=== PATIENT | female | born 1990 | race Caucasian/White ===

== ENCOUNTER 2016-12-29 14:11 | Observation (INO) | payer BC, MEDICAID ==
[~2016-12-29] VITALS: Ht 170.2 cm; Wt 48.5 kg
[2016-12-29] MEDS ORDERED: methylPREDNISolone SOD SUCC 125 MG/2 ML VL ONE (14:17)
[2016-12-29] MEDS ORDERED: SODIUM CHLORIDE 0.9% 1,000 ML IVB ONE (14:41)
[2016-12-29] MEDS ORDERED: methylPREDNISolone SOD SUCC 125 MG/2 ML VL IV ONE (14:45)
[2016-12-29] MEDS ORDERED: diphenhdrAMINE HCL 50 MG/1 ML VL IV ONE (14:45)
[2016-12-29 14:53] LABS: Hematocrit 44.8 % (36.0-46.0); Hemoglobin 15.2 g/dL (12.2-16.2); Mean Corpuscular Hemoglobin 32.2 pg (28.0-32.0); Mean Corpuscular Volume 94.7 fL (80.0-100.0); Mean Platelet Volume 8.8 fL (7.4-10.4); Platelet Count (auto) 260 10^3/uL (140-450); Red Cell Distribution Width 13.1 % (11.6-16.0); White Blood Cell 4.3 10^3/uL (4.4-10.8)
[2016-12-29 15:03] LABS: Albumin 4.6 g/dL (3.4-5.0); Bilirubin, Total 0.5 mg/dL (0.2-1.0); Calcium 9.3 mg/dL (8.5-10.1); Potassium 3.4 mmol/L (3.5-5.1); Total Protein 8.3 g/dL (6.4-8.2)
[2016-12-29 15:06] LABS: Metamyelocytes % 0; Myelocytes % 0; Promyelocytes % 0; Reactive Lymphocytes 0
[2016-12-29 15:08] LABS: INR 1.04 (0.9-1.15); Partial Thromboplastin Time 24.7 sec (22.64-33.71); Prothrombin Time 11.2 sec (9.37-12.3)
[2016-12-29 15:47] LABS: Urine Bilirubin Negative (Negative); Urine Blood Negative /uL (Negative); Urine Color Yellow (Yellow); Urine Glucose Normal (Normal); Urine Mucus FEW (None Seen); Urine Nitrite Negative (Negative); Urine RBC <1 /hpf (0 - 4); Urine Squamous Epithelial Cell FEW /hpf (<5); Urine Urobilinogen Normal (Negative); Urine pH 6.5 (5.0-8.0)
[2016-12-29 15:52] LABS: Urine Ketone 2+ (Negative)
[2016-12-29 17:19] LABS: Platelet Estimate Adequate; RBC Morphology Normal
[2016-12-29] MEDS ORDERED: LIDOCAINE VISCOUS 2% 15ML UD MT ONE (18:30)
[2016-12-29] MEDS ORDERED: FAMOTIDINE (10MG/ML) 2ML VL IV ONE (18:30)
[2016-12-29] MEDS ORDERED: FAMOTIDINE 20 MG TAB PO ONE (19:00)
[2016-12-29 19:35] VITALS: BP 150/78
== END 2016-12-29 20:00 | disposition home or self-care (01) | DRG 923 ==
LOC: ER 14:17 → OVERFLOW 14:46 → ER 20:00
PROVIDERS: ADMIT Family Medicine; ATTEND Family Medicine
DX: T78.1XXA Other adverse food reactions, not elsewhere classified, initial encounter (principal); D89.9 Disorder involving the immune mechanism, unspecified; K12.0 Recurrent oral aphthae; R06.2 Wheezing; R06.02 Shortness of breath; X58.XXXA Exposure to other specified factors, initial encounter
CPT/HCPCS: 36415; 71010; 80053; 81001; 83735; 85007; 85027; 85610; 85730; 93005; 94640; 96361; 96374; G0378; J3490

== ENCOUNTER 2018-06-23 00:32 | Emergency (ER) | payer BC, OTHER ==
[~2018-06-23] VITALS: Ht 165.1 cm; Wt 59.0 kg
[2018-06-23 01:53] LABS: Basophils # (auto) 0.1 uL; Basophils % (auto) 0.6 % (0.0-2.0); Eosinophils # (auto) 0 uL; Eosinophils % (auto) 0.2 % (0.0-7.0); Hematocrit 41.2 % (36.0-46.0); Hemoglobin 13.9 g/dL (12.2-16.2); Mean Corpuscular Hgb Conc. 33.7 g/dL (32.0-36.0); Mean Corpuscular Volume 97.9 fL (80.0-100.0); Monocytes # (auto) 0.5 uL; Monocytes % (auto) 5.4 % (0.0-12.0); Neutrophils # (auto) 7.2 uL; Neutrophils % (auto) 73.8 % (37.0-80.0); Platelet Count (auto) 288 10^3/uL (140-450); White Blood Cell 9.8 10^3/uL (4.4-10.8)
[2018-06-23 02:12] LABS: Albumin 4.2 g/dL (3.4-5.0); BUN/Creatinine Ratio 10.4; Calcium 8.8 mg/dL (8.5-10.1)
[2018-06-23 02:14] LABS: Bilirubin, Total 0.3 mg/dL (0.2-1.0); Total Protein 7.5 g/dL (6.4-8.2)
[2018-06-23] MEDS ORDERED: LORazepam 2MG/ML-1ML VIAL IM ONE (05:00)
[2018-06-23 05:27] VITALS: BP 120/86
[2018-06-23 05:47] LABS: Urine Pregnacy Test Negative (Negative)
[2018-06-23 05:51] LABS: Urine Bacteria FEW /hpf (None Seen); Urine Blood Negative /uL (Negative); Urine Mucus FEW (None Seen); Urine Specific Gravity 1.013 (1.001-1.035); Urine WBC 8 /hpf (0 - 5)
[2018-06-23 06:12] LABS: Alcohol, Urine < 3.0 mg/dL (0-5); Amphetamine Screen, Urine NEGATIVE (NEGATIVE); Barbiturate Scree,Urine NEGATIVE (NEGATIVE); Benzodiazephine Screen, Urine POSITIVE (NEGATIVE); Cannabinoid Screen, Urine POSITIVE (NEGATIVE); Cocaine Screen, Urine POSITIVE (NEGATIVE); Opiate Scree,Urine NEGATIVE (NEGATIVE); Phencyclidine Screen, Urine NEGATIVE (NEGATIVE)
== END 2018-06-23 06:08 | disposition home or self-care (01) ==
LOC: EDBD 00:32 → ER 00:36
DX: N39.0 Urinary tract infection, site not specified (principal); F41.9 Anxiety disorder, unspecified
CPT/HCPCS: 36415; 70450; 80053; 80307; 81001; 81025; 85025; 96372; 99285; J2060